=== PATIENT | female | born 1955 | race Caucasian/White ===

== ENCOUNTER 2021-07-31 13:58 | Outpatient (REF) | payer MEDICARE, SELFPAY ==
--- NOTE | ~2021-07-31 | US_ITS ---
EXAMINATION: US THYROID CLINICAL INFORMATION: Nontoxic single thyroid nodule. COMPARISON: None TECHNIQUE: Linear transducer grayscale and color Doppler examination with attention to the region of the thyroid. FINDINGS: SIZE: Measurements of the thyroid lobes and nodules are given in sagittal, anteroposterior and transverse dimensions respectively. Right Thyroid Lobe: 4.7 x 1.1 x 1.6 cm, volume 4.3 mL. Parenchyma: The gland echotexture is homogeneous. Thyroid vascularity is normal. Left Thyroid Lobe: 4.1 x 1.2 x 1.2 cm, volume 3.1 mL. Parenchyma: The gland echotexture is homogeneous. Thyroid vascularity is normal. Isthmus: 0.3 cm in maximum AP dimension. No focal thyroid nodule is seen. NODES: No lymphadenopathy is seen in the tissue surrounding the thyroid gland. US/US thyroid IMPRESSION: Normal thyroid ultrasound.
== END 2021-07-31 13:59 | disposition home or self-care (01) ==
LOC: HO.HMGCX 13:58
PROVIDERS: PCP Internal Medicine; Visit Provider Internal Medicine
DX: E04.1 Nontoxic single thyroid nodule (principal)
CPT/HCPCS: 76536

== ENCOUNTER 2022-01-04 14:07 | Outpatient (REF) | payer OTHER, SELFPAY ==
--- NOTE | ~2022-01-04 | MM_ITS ---
EXAMINATION: MM SCREENING DIGITAL BREAST TOMOSYNTHESIS, BILATERAL CLINICAL INFORMATION: Screening. Asymptomatic. The lifetime risk of breast cancer based on the Tyrer-Cuzick Model is 4%. COMPARISON: Outside mammography: 12/12/2020, 12/09/2019, 12/05/2018 (Arielle Colvin). TECHNIQUE: Digital breast tomosynthesis is performed in both the craniocaudal and mediolateral oblique views along with computer-aided detection (CAD). Synthesized 2D images are generated from the tomosynthesis. FINDINGS: There are scattered areas of fibroglandular density (ACR BI-RADS breast composition Category b). There are no significant masses, abnormal calcifications, or other abnormalities. Parenchymal pattern is similar to prior outside studies. There is no developing density or architectural abnormality. The axilla and skin contours are unremarkable. MM/MM tomosynthesis screening BI IMPRESSION: No mammographic evidence of malignancy. ASSESSMENT: BI-RADS 1: Negative RECOMMENDATION: Routine annual mammography screening. This patient's information was entered into a reminder system with a target due date for their next mammogram.
== END 2022-01-04 14:08 | disposition home or self-care (01) ==
LOC: HO.MAMMO 14:07
PROVIDERS: PCP Internal Medicine; Visit Provider Internal Medicine
DX: Z12.31 Encounter for screening mammogram for malignant neoplasm of breast (principal)
CPT/HCPCS: 77063; 77067

== ENCOUNTER 2022-06-27 15:45 | Outpatient (REF) | payer OTHER, SELFPAY ==
--- NOTE | ~2022-06-27 | US_ITS ---
EXAMINATION: US VENOUS ULTRASOUND WITH DOPPLER LOWER EXTREMITY, LEFT CLINICAL INFORMATION: Pain left knee COMPARISON: None TECHNIQUE: Ultrasound of the deep veins is performed from the hip to the calf with compression sonography and color and pulse Doppler assessment. Spectral analysis with color-flow imaging is performed. FINDINGS: There is normal venous compression and respiratory variation and augmented flow. The visualized common femoral vein, superficial femoral vein, profunda femoral vein, popliteal vein, and the trifurcation region shows no evidence of deep venous thrombosis. There is no significant popliteal fossa cyst. If the patient's symptoms persist, followup ultrasound in 5 days 7 days might be of value to exclude proximal propagation from a non-visualized calf vein. US/US venous duplex LE LT IMPRESSION: No DVT demonstrated in the left lower extremity.
== END 2022-06-27 15:46 | disposition home or self-care (01) ==
LOC: HO.US 15:45
PROVIDERS: Visit Provider Registered Nurse
DX: M25.562 Pain in left knee (principal); G89.29 Other chronic pain
CPT/HCPCS: 93971

== ENCOUNTER 2022-08-08 06:53 | Outpatient (REF) | payer OTHER, SELFPAY ==
--- NOTE | ~2022-08-08 | XR_ITS ---
EXAMINATION: AP bilateral knee standing. Left knee. CLINICAL INDICATION: Pain left knee. COMPARISON: None. TECHNIQUE: AP bilateral knee standing 1 view. Left knee 2 views. FINDINGS: AP bilateral knee: There is mild reduction in the medial and lateral compartments of both knee joints with periarticular spurring in the medial and lateral compartment left knee and medial compartment right knee. No visible acute fracture, dislocation or bony erosive changes seen. LEFT KNEE: There is mild loss of patellofemoral compartment joint space. No visible acute fracture or dislocation seen. There is no subluxation. XR/XR knee standing BI IMPRESSION: 1. Mild degenerative changes medial and lateral compartment both knees with periarticular spurring. 2. There is mild loss of patellofemoral compartment joint space left knee. 3. No visible acute fracture or dislocation seen.
--- NOTE | ~2022-08-08 | XR_ITS ---
EXAMINATION: AP bilateral knee standing. Left knee. CLINICAL INDICATION: Pain left knee. COMPARISON: None. TECHNIQUE: AP bilateral knee standing 1 view. Left knee 2 views. FINDINGS: AP bilateral knee: There is mild reduction in the medial and lateral compartments of both knee joints with periarticular spurring in the medial and lateral compartment left knee and medial compartment right knee. No visible acute fracture, dislocation or bony erosive changes seen. LEFT KNEE: There is mild loss of patellofemoral compartment joint space. No visible acute fracture or dislocation seen. There is no subluxation. XR/XR knee LT 2V IMPRESSION: 1. Mild degenerative changes medial and lateral compartment both knees with periarticular spurring. 2. There is mild loss of patellofemoral compartment joint space left knee. 3. No visible acute fracture or dislocation seen.
== END 2022-08-08 06:54 | disposition home or self-care (01) ==
LOC: HO.HOSX 06:53
PROVIDERS: Visit Provider Physician Assistant
DX: M17.12 Unilateral primary osteoarthritis, left knee (principal); M25.561 Pain in right knee; Z79.899 Other long term (current) drug therapy
CPT/HCPCS: 73560; 73565; 99202

== ENCOUNTER 2022-10-12 10:02 | Outpatient (REF) | payer OTHER, SELFPAY ==
--- NOTE | ~2022-10-12 | MM_ITS ---
EXAMINATION: BONE DENSITOMETRY CLINICAL INDICATION: Age-related osteoporosis without current pathological fracture. COMPARISON: This is the patient's baseline examination. TECHNIQUE: Using a [employer] DXA System (software version: 13.1) manufactured by [email or web address], dual-energy x-ray absorptiometry was performed of the lumbar spine and left hip. The images are of good technical quality. Summary results are attached. FINDINGS: AP SPINE L1-L4: BMD 1.031 g/cm2, Z-score 0.4, T-score -1.2, osteopenia. LEFT FEMUR, NECK: BMD 0.712 g/cm2, Z-score -0.8, T-score -2.3, osteopenia. LEFT FEMUR, TOTAL: BMD 0.898 g/cm2, Z-score 0.5, T-score -0.9, normal. IDENTIFIED RISK FACTORS: History of adult fracture. Secondary osteoporosis (early menopause). Hysterectomy. Bilateral oophorectomy. HISTORY OF FRACTURE: Forearm. MEDICATIONS: Vitamin D. MM/XR DEXA axial skeleton IMPRESSION: 1. DIAGNOSIS: Osteopenia based on the lowest T-score value of -2.3 in the femoral neck applying World Health Organization criteria. 2. 10-YEAR FRACTURE RISK PREDICTION, FRAX: Major osteoporotic fracture (clinical spine, forearm, hip or shoulder) 12.2%. Hip fracture 2.5%. 3. Treatment Recommendations: NOF guidelines recommend consideration for treatment in postmenopausal women and men age 50 and older presenting with the following: -A hip or vertebral (clinical or morphometric) fracture. -T-score less than or equal to -2.5 at the femoral neck or spine after appropriate evaluation to exclude secondary causes. -Low bone mass at the hip or spine and a 10-year fracture probability by FRAX of greater than or equal to 3% for hip fracture or greater than or equal to 20% for major osteoporotic fracture based on the [place] adapted WHO algorithm. 4. Other Recommendations: All treatment decisions require clinical judgment and consideration of individual patient factors, including patient preferences, comorbidities, previous drug use, risk factors not captured in the FRAX model (e.g. frailty, falls, vitamin D deficiency, increased bone turnover, interval significant decline in bone density) and possible under or overestimation of fracture risk by FRAX. Additional medical evaluation for secondary cause of low bone mineral density may be appropriate. FUTURE SCAN RECOMMENDATION: People with diagnosed cases of osteoporosis or at high risk for fracture should have regular bone mineral density tests. For patients eligible for Medicare, routine testing is allowed once every 2 years. The testing frequency can be increased to one year for patients who have rapidly progressing disease, those who are receiving or discontinuing medical therapy to restore bone mass, or have additional risk factors.
== END 2022-10-12 10:03 | disposition home or self-care (01) ==
LOC: HO.MAMMO 10:02
PROVIDERS: PCP Registered Nurse; Visit Provider Registered Nurse
DX: M81.0 Age-related osteoporosis without current pathological fracture (principal)
CPT/HCPCS: 77080

== ENCOUNTER 2022-10-16 09:00 | Outpatient (RCR) | payer OTHER, SELFPAY ==
--- NOTE | 2022-09-04 16:13 | MHC.PT.EP ---
[facility] [place] [facility] [place] [facility] [place] Office [address] [phone] F: [phone] F: [phone] F: [phone] F: [phone] Physical Therapy Plan of Care Date of Evaluation: Date of Surgery: NA Diagnosis: PATELLOFEMORAL ARTHRITIS OF L KNEE Assessment: Pt IS 67 YO F REFERRED TO PT FROM [facility]THO ([facility]) WITH PATELLOFEMORAL ARTHRITIS L KNEE. REPORTS HAVING TROUBLE WITH KNEE FOR SEVERAL YEARS. INSIDIOUS ONSET. NO PT. PRESENTS WITH GOOD L KNEE ROM, SWELLING, SLIGHT TTP FAT PAD, PES PLANUS, LIMITED BAL, PAIN. SHOULD BENEFIT FROM PT TO ADDRESS THESE ISSUES Frequency and Duration: The patient will be seen 2X/WK X 4 WKS Short Term Goals: 1. INCREASED AWARENESS KNEE CARE 2. I HEP WITH DC EX PLAN Assisted Goals: 1. DECREASED KNEE PAIN AT LEAST 50% WITH ADLS 2. Pt TO WEAR ORTHOTICS WITH RELIEF IF INDICATED Treatment Plan: Modalities to reduce pain, spasms and effusion. Manual therapy to restore motion and function. Therapeutic exercise to improve strength and flexibility. Neuromuscular re-education for posture and balance. Therapeutic activities to return to functional activities of daily living. Electronically signed by: SERGIO TUTTLE PT Please sign and return to therapist. Thank you for your referral.
--- NOTE | 2022-10-16 12:23 | MHC.PT.DC ---
[facility] [place] Office [place] [facility] [place] [facility] [address] [place] Koe[address] 140 [facility] [phone] F: [phone] F: [phone] F: [phone] F: [phone] Physical Therapy Discharge Report Diagnosis: PATELLOFEMORAL ARTHRITIS OF L KNEE Date of Surgery: NA Date of Evaluation: 09/04/22 Date of Discharge: 10/16/22 Treatments to Date: 8 Cancellations to Date: No Shows to Date: Discharge Status: Achieved Goals Improved Function Independent with HEP Discharge Summary: HAS MET PT GOALS (EXCEPT ARCH SUPPORT WEAR, BUT AWARE) Electronically signed by: SERGIO TUTTLE PT Please sign and return to therapist. Thank you for your referral.
== END 2022-10-16 12:24 | disposition home or self-care (01) ==
LOC: HO.PT 09:00
PROVIDERS: PCP Registered Nurse; Visit Provider Physician Assistant
DX: M17.12 Unilateral primary osteoarthritis, left knee (principal)
CPT/HCPCS: 97110; 97140; 97161; 97530; 97535

== ENCOUNTER 2023-01-03 13:52 | Outpatient (REF) | payer OTHER, SELFPAY ==
[2023-01-03 20:46] LABS: Influenza A PCR NEGATIVE (Negative); Influenza B PCR NEGATIVE (Negative); Resp Syncy Virus RNA Qual PCR NEGATIVE (Negative); SARS COV2 PCR INHOUSE NEGATIVE (Negative)
== END 2023-01-03 13:53 | disposition home or self-care (01) ==
LOC: HO.HHCLNP 13:52
PROVIDERS: Visit Provider Emergency Medicine
DX: Z20.822 Contact with and (suspected) exposure to COVID-19 (principal); R68.89 Other general symptoms and signs
CPT/HCPCS: 0241U

== ENCOUNTER 2023-02-18 13:22 | Outpatient (REF) | payer OTHER, SELFPAY | END 2023-02-18 13:23 | disposition home or self-care (01) | LOC: HO.MAMMO 13:22 | PROVIDERS: PCP Registered Nurse; Visit Provider Registered Nurse | DX: Z12.31 Encounter for screening mammogram for malignant neoplasm of breast (principal) | CPT/HCPCS: 77063; 77067 ==

== ENCOUNTER → 2023-02-18 13:45 | Outpatient (BNV) | payer OTHER, SELFPAY | PROVIDERS: PCP Registered Nurse; Visit Provider Radiology Diagnostic Radiology | DX: Z12.31 Encounter for screening mammogram for malignant neoplasm of breast (principal) | CPT/HCPCS: 77063; 77067 ==

== ENCOUNTER 2023-07-22 08:31 | Outpatient (REF) | payer OTHER, SELFPAY ==
[2023-07-22 13:00] LABS: Alanine Aminotransferase 14 U/L (0-31); Albumin Level 4.1 g/dL (3.5-5.0); Alkaline Phosphatase 87 U/L (39-117); Anion Gap 11 (12-20); Aspartate Amino Transferase 17 U/L (5-31); Bilirubin Total 0.3 mg/dL (0.0-1.0); Blood Urea Nitrogen 16 mg/dL (9-16); Calcium 10.2 mg/dL (8.4-10.2); Carbon Dioxide 27 mmol/L (22-29); Chloride 109 mmol/L (96-108); Cholesterol 252 mg/dL (<200); Estimated Glomerular Filt Rate > 60; Glucose Random 101 mg/dL (60-115); HDL Cholesterol 53 mg/dL (>40); LDL Cholesterol Calculated 176 mg/dL (<100); Phosphorus 2.3 mg/dL (2.7-4.5); Potassium 4.7 mmol/L (3.3-5.1); Sodium 142 mmol/L (135-145); Triglycerides 116 mg/dL (<150)
[2023-07-22 13:19] LABS: TSH reflex Free T4 0.65 uIU/mL (0.32-4.0); Vitamin D 25-OH Total 61.6 ng/mL (>30)
== END 2023-07-22 08:32 | disposition home or self-care (01) ==
LOC: HO.HHCL 08:31
PROVIDERS: Visit Provider Nurse Practitioner Family
DX: Z13.6 Encounter for screening for cardiovascular disorders (principal); E21.0 Primary hyperparathyroidism
CPT/HCPCS: 36415; 80053; 80061; 82306; 83970; 84100; 84443

== ENCOUNTER 2023-08-20 08:12 | Outpatient (REF) | payer OTHER, SELFPAY ==
[2023-08-20 12:55] LABS: Parathyroid Hormone Intact 131.9 pg/mL (8.7-77.1)
[2023-08-20 13:01] LABS: Alanine Aminotransferase 15 U/L (0-31); Albumin Level 4.1 g/dL (3.5-5.0); Alkaline Phosphatase 93 U/L (39-117); Anion Gap 12 (12-20); Aspartate Amino Transferase 17 U/L (5-31); Bilirubin Total 0.3 mg/dL (0.0-1.0); Blood Urea Nitrogen 13 mg/dL (9-16); Calcium 10.3 mg/dL (8.4-10.2); Carbon Dioxide 27 mmol/L (22-29); Chloride 106 mmol/L (96-108); Estimated Glomerular Filt Rate > 60; Glucose Random 98 mg/dL (60-115); Magnesium 2.4 mg/dL (1.6-2.6); Phosphorus 2.8 mg/dL (2.7-4.5); Potassium 4.5 mmol/L (3.3-5.1); Sodium 140 mmol/L (135-145); Total Protein 6.9 g/dL (6.5-8.0)
[2023-08-20 13:04] LABS: Vitamin D 25-OH Total 100.8 ng/mL (>30)
== END 2023-08-20 08:13 | disposition home or self-care (01) ==
LOC: HO.HHCL 08:12
PROVIDERS: Visit Provider Nurse Practitioner Family
DX: R79.89 Other specified abnormal findings of blood chemistry (principal); E83.39 Other disorders of phosphorus metabolism
CPT/HCPCS: 36415; 80053; 82306; 83735; 83970; 84100

== ENCOUNTER 2024-02-24 12:19 | Outpatient (REF) | payer OTHER, SELFPAY ==
--- NOTE | ~2024-02-24 | MM_ITS ---
EXAMINATION: MM SCREENING DIGITAL BREAST TOMOSYNTHESIS, BILATERAL CLINICAL INFORMATION: Screening. Asymptomatic. COMPARISON: Mammography: Comparison is made with available priors TECHNIQUE: Digital breast mammography with tomosynthesis is performed in both the craniocaudal and mediolateral oblique views along with computer-aided detection (CAD). FINDINGS: There are scattered areas of fibroglandular density (ACR BI-RADS breast composition Category b). There are no significant masses, abnormal calcifications, or other abnormalities. MM/MM tomosynthesis screening BI IMPRESSION: No mammographic evidence of malignancy. ASSESSMENT: BI-RADS BI-RADS 1 - Negative RECOMMENDATION: Routine annual mammography screening. 1 year F/U This examination should not preclude the clinical evaluation of a suspicious palpable abnormality. This patient's information was entered into a reminder system with a target due date for their next mammogram. Electronically signed by: Jane Houston DO 03/05/2024 06:35 PM EDT
== END 2024-02-24 12:20 | disposition home or self-care (01) ==
LOC: HO.MAMMO 12:19
PROVIDERS: PCP Nurse Practitioner Family; Visit Provider Registered Nurse
DX: Z12.31 Encounter for screening mammogram for malignant neoplasm of breast (principal)
CPT/HCPCS: 77063; 77067

== ENCOUNTER → 2024-02-24 13:00 | Outpatient (BNV) | payer OTHER, SELFPAY | PROVIDERS: PCP Nurse Practitioner Family; Visit Provider Internal Medicine | DX: Z12.31 Encounter for screening mammogram for malignant neoplasm of breast (principal) | CPT/HCPCS: 77063; 77067 ==

== ENCOUNTER 2025-03-01 12:05 | Outpatient (REF) | payer OTHER, SELFPAY ==
--- OUTSIDE RECORDS SUMMARY | 2025-03-01 14:33 | XMS_ITS | Clinical Summary ---
Author Organization [facility] it Address [address] [place] [address] Care Team Providers Care Desk Clerks Supervisor Name Role Phone Bri Costa MD Primary Care Provider Allergies No known active allergies Medications ibuprofen (ADVIL,MOTRIN) 600 mg tablet Take 1 Tab by mouth every 6 hours as needed (as needed for headaches). Active LORazepam (ATIVAN) 0.5 mg tablet Take 1 tablet by mouth daily as needed for Anxiety. Active sertraline (ZOLOFT) 50 mg tablet Take 50 mg by mouth daily. Active Active Problems Problem Noted Date Diagnosed Date Prediabetes 05/29/2024 COVID-19 virus infection 01/12/2021 Overview (05/29/2024): 01/14 covid positive Osteoporosis 11/11/2019 Carcinoma of endometrium ([facility]/HCC V24, [facility] V 28) 12/22/2018 Overview (05/29/2024): Hysterectomy 08/14/2018 Endometrial cancer (CMS/HCC V24, CMS/HCC V28) Overview (05/29/2024): F/u software configuration specialist onc [facility], recommend hysterectomy Last Assessment & Plan: Counseled pt and family re: biopsy and ultrasound findings. I reviewed usual process and referral to [facility] for likely surgery alone. She will await this visit. All questions and concerns addressed. Obstructive sleep apnea 06/07/2018 Overview (05/29/2024): [facility] Home Polysomnogram: Date 06/04/2018; AHI 12, Unclassified apneas 0; Obstructive apneas 17; Central apneas 0; Mixed apneas 0; hypopneas 65; average oxygen saturation 93% (lowest 79% without saturations <88% for 5% or more of study) - Obstructive Sleep Apnea - mild; mostly hypopneas with obstructive apneas; without sleep related hypoventilation by 2019 home polysomnogram. Osteoarthritis of both hands 08/22/2016 Vitamin D deficiency 04/08/2014 Neck pain 12/08/2012 Osteopenia 12/08/2012 Hyperparathyroidism ([facility] V24) 12/11/2010 Hyperlipidemia with target LDL less than 130 Overview (05/29/2024): IMO update Depression 07/10/2010 Overview (05/29/2024): Patient follow a [facility] and has her prescriptions give there Anxiety 07/10/2010 Immunizations Immunization Administration Dates Next Due Influenza Quadravalent, MDCK , 0.5ml, with preservative (Flucelvax) 6mo and older 03/21/2017 Influenza trivalent, with preservative (Fluzone; Afluria) 6mo and older 02/10/2015,04/08/2014,05/01/2013,2010 Tdap Tetanus diptheria acell ular pertussis (Boostrix; Adacel) 7yo and older 07/10/2010 Zoster Live 01/11/2017 Surgical History Surgery Date Site/Laterality Comments TUBAL LIGATION PROCEDURE: HISTORICAL TUBAL LIGATION CHOLECYSTECTOMY 1998 PROCEDURE: [place] CHOLECYSTECTOM[place] COLONOSCOPY 01/02/2010 PROCEDURE: HISTORICAL COLONOSCOPY; COMMENT: Dr Rodríguez ([facility]) - solitary, cecal tubular adenomatous polyp. Otherwise unremarkable colonoscopy to the cecum. Repeat colonoscopy in 5 years is recommended. EYE SURGERY 2012 PROCEDURE: [place] TRABECULOPLASTY BY LASER SURGERY; COMMENT: for glaucoma COLONOSCOPY 2014 PROCEDURE: HISTORICAL COLONOSCOPY; COMMENT: 4 mm hepatic flexure polyp, unable to biopsy. COLONOSCOPY 02/18/2020 PROCEDURE: HISTORICAL COLONOSCOPY; COMMENT: 9 mm distal transverse colon polyp: Tubular adenoma. Medical History Medical History Date Comments Anxiety state, unspecified DX:An xiety state, unspecified Generalized osteoarthrosis, unspecified site DX:Generalized osteoarthrosi s, unspecified site Osteoarthritis of hand, right 08/22/2016 DX :Osteoarthritis of hand, right Prediabetes DX:Prediabetes COVID-19 virus infection 01/12/2021 DX:COVI D-19 virus infection; COMMENT: 01/14 covid positive Family History Medical History Relation Name Comments Other: , unknown etiology Father No Known Problems Maternal Grandfather No Known Problems Maternal Grandmother Other: , question cause Mother No Known Problems Paternal Grandfather No Known Problems Paternal Grandmother Breast cancer Neg Hx Colon cancer Neg Hx Ovarian cancer Neg Hx Uterine cancer Neg Hx Relation Name Status Comments Father Alive Maternal Grandfather Maternal Grandmother Mother Alive Paternal Grandfather Paternal Grandmother Social History Tobacco Use Types Packs/Day Years Used Date Smoking Tobacco: Former Cigarettes 0.5 2 0 05/27/1974 - 05/27/1976 Smokeless Tobacco: Never Alcohol Use Standard Drinks/Week Comments No 0 (1 standard drink = 0.6 oz pur e alcohol) Comments Unknown Sex and Gender Information Value Date Recorded Sex Assigned at Not on file Legal Sex Female 5:02 AM EST Gender Identity Not on file Sexual Orientation Not on file Obstetrics History Plan of Treatment Health Maintenance Due Date Last Done Comments COVID-19 Vaccine (#1) 1960 Pneumococcal Vaccine: 50+ Years (1 of 1 - PCV) 2005 Zoster Vaccines (1 of 2) 03/08/2017 01/11/2017 DTaP,Tdap,and Td Vaccines (2 - Td or Tdap) 07/10/2020 07/10/2010 Falls Risk Assessment 04/29/2022 Social Influencers of Health Screening 04/29/2022 Breast Cancer Screening 12/12/2022 12/13/19 21, 12/09/2019, 12/05/2018, Additional history exists Depression Screening 05/27/2024 Cholesterol Screening (Lipid Panel) 11/15/2024 11/16/2019 Influenza Vaccine (#1) 2025 7, 02/10/2015, 04/08/2014, Additional history exists Colorectal Cancer Screening: Colonoscopy 02/17/2025 02/18/2020 Osteoporosis Screening (Bone Density Screening) 07/07/2029 07/07/2019, 03/15/2017 RSV Immunization Adult Patients (1 - 1-dose 75+ series) 2030 Hepatitis C Screening Completed 12/11/2012 HIB Vaccines Aged Out No longer eligi ble based on patient's age to complete this topic HPV Vaccines Aged Out No longer eligi ble based on patient's age to complete this topic Hepatitis A Vaccines Aged Out No long er eligible based on patient's age to complete this topic Hepatitis B Vaccines Aged Out No long er eligible based on patient's age to complete this topic IPV Vaccines Aged Out No longer eligi ble based on patient's age to complete this topic MMR Vaccines Aged Out No longer eligi ble based on patient's age to complete this topic Meningococcal ACWY Vaccine Aged Out N o longer eligible based on patient's age to complete this topic Meningococcal B Vaccine Aged Out No l onger eligible based on patient's age to complete this topic RSV Immunization Patients Under 20 months Aged Out No longer eligible based on patient's age to complete this topic Varicella Vaccines Aged Out No longer eligible based on patient's age to complete this topic Procedures Procedure Name Priority Date/Time Associated Diagnosis Comments SCREENING MAMMOGRAPHY BI 2-VIEW BREAST INC CAD Routine 12/12/2020 8:15 AM EDT Encounter for screening mammogram for malignant neoplasm of breast COLONOSCOPY Routine 02/18/2020 LIPID PANEL Routine 11/16/2019 DXA BONE DENSITY STUDY 1+ SITS AXIAL SKEL Routine 07/07/2019 1:47 PM EST Other specified disorders of bone density and structure, multiple sites HEPATITIS C SCREENING Routine 12/11/2012 from Last 3 Months or Most Recently Relevant to Health Maintenance Results * SCREENING MAMMOGRAPHY BI 2-VIEW BREAST INC CAD (12/12/2020 8:15 AM EDT) Anatomical Region Laterality Modality Radiographic Paz ging 12/09/2019 9:52 AM EDT Narrative 12/12/2020 5:06 PM EDT This is a summary report. The complete report is available in the patient's medical record. If you cannot access the medical record, please contact the sending organization for a detailed fax or copy. Full field digital screening 3D and 2D mammography, reviewed with CAD and compared to previous mammograms dating back to 11/24/2016 with most recent of 12/09/2019. The breasts are composed of fatty and fibroglandular tissue. No suspicious mass, architectural distortion or suspicious calcifications are identified. IMPRESSION: : No mammographic evidence of malignancy. BIRADS 1-Negative; N. 5 year breast cancer risk assessment 0.8 % Lifetime breast cancer risk assessment 3.1 % Breast cancer risk category Low (<15%) Procedure Note Susy Urias MD - 05/15/2022 This is a summary report. The complete report is available in thepatient's medical record. If you cannot access the medical record, pleasecontact the sending organization for a detailed fax or copy. Full field digital screening 3D and 2D mammography, reviewed with CAD andcompared to previous mammograms dating back to 11/24/2016 with most recentof 12/09/2019. The breasts are composed of fatty and fibroglandulartissue. No suspicious mass, architectural distortion or suspiciouscalcifications are identified. IMPRESSION: : No mammographic evidence of malignancy. BIRADS 1-Negative; N. 5 year breast cancer risk assessment 0.8 % Lifetime breast cancer risk assessment 3.1 % Breast cancer risk category Low (<15%) Ana Govea MD IMG XR PROCEDURES Final Res ult * Colonoscopy (02/18/2020) Pathologist [facility] Colonoscopy no interpretation abstracted Anatomical Region Laterality Modality Other Historical Provider HEALTH MAINTENANCE Final Result * (ABNORMAL) Lipid panel (11/16/2019) LDL/HDL Ratio 6(A) 0 - 4 Triglycerides 182(A) 0 - 150 mg/dL Cholesterol 234(A) 0 - 200 mg/dL HDL 40 >=40 mg/dL LDL Cholesterol 158(A) 0 - 100 mg/dL Blood Venous blood specimen / Unknown Historical Provider LAB BLOOD ORDERABLES Yareli l Result * DXA BONE DENSITY STUDY 1+ SITS AXIAL SKEL (07/07/2019 1:47 PM EST) Anatomical Region Laterality Modality Bone Densitometr y 12/22/2018 11:5 1 AM EDT Narrative 07/07/2019 5:47 PM EST BONE DENSITY SCAN (DEXA): FINDINGS: Lumbar Spine T-score is -2.1. (SD relative to 20-29 y/o adult) Z-score is -0.4. (SD relative to age matched peers) This is considered osteopenia by WHO criteria. Left Hip T-score is -2.6. Z-score is -1.2. This is considered osteoporosis by WHO criteria. Comparison exam(s): As recent as 03/15/2017 and as far back as 03/02/2011. -10.8% loss of lumbar spine bone mineral density compared with 2016 and 9.6% loss compared with 2010, both of which are statistically significant at the 95% confidence level. -4.2% increase in left hip bone mineral density compared with 2016 and 7.4% loss compared with 2010, both of which are statistically significant at the 95% confidence level. IMPRESSION: IMPRESSION: Osteoporosis by WHO criteria. FRAX scores not able to be calculated. The [facility] Department of Internal Medicine recommends using National Osteoporosis Foundation (NOF) guidelines in treatment decisions related to osteoporosis. NOF guidelines suggest considering treatment for postmenopausal women and men aged 50 or older presenting with the following: History of hip or vertebral fracture. T-score = -2.5 (DXA) at the femoral neck, total hip, or spine, after appropriate evaluation to exclude secondary causes. Low bone mass (T-score between -1.0 and -2.5 at the femoral neck or spine) AND a 10-year probability of a hip fracture = 3% OR a 10-year probability of a major osteoporosis-related fracture = 20% based on the [place]-adapted WHO algorithm Please note that all treatment decisions require clinical judgment and consideration of individual patient factors, including patient preferences, co-morbidities, previous drug use, risk factors not captured in the FRAX model (e.g., frailty, falls, vitamin D deficiency, increased bone turnover, interval significant decline in bone density) and possible under- or over-estimation of fracture risk by FRAX. Optional alternative screening schedule based on yael Perez., [facility] June 14, 2011 for patients with osteopenia (based on hip BMD T-score) is as follows: * advanced osteopenia (T scores -2.00 to -2.49), BMD testing every year * moderate osteopenia (T scores -1.50 to -1.99), BMD testing every 5 years mild osteopenia or normal BMD (T scores -1.50 and higher), BMD testing every 15 years Procedure Note Sepideh Alvarez MD - 05/15/2022 BONE DENSITY SCAN (DEXA): FINDINGS: Lumbar Spine T-score is -2.1. (SD relative to 20-29 y/o adult) Z-score is -0.4. (SD relative to age matched peers) This is considered osteopenia by WHO criteria. Left Hip T-score is -2.6. Z-score is -1.2. This is considered osteoporosis by WHO criteria. Comparison exam(s): As recent as 03/15/2017 and as far back as1. -10.8% loss of lumbar spine bone mineral density compared with 2016 and9.6% loss compared with 2010, both of which are statistically significant at the 95% confidencelevel. -4.2% increase in left hip bone mineral density compared with 2016 and7.4% loss compared with 2010, both of which are statistically significant at the 95% confidencelevel. IMPRESSION: IMPRESSION: Osteoporosis by WHO criteria. FRAX scores not able to be calculated. The [facility] Department of Internal Medicine recommendsusing National Osteoporosis Foundation (NOF) guidelines in treatment decisions related toosteoporosis. NOF guidelines suggest considering treatment for postmenopausal women and menaged 50 or older presenting with the following: History of hip or vertebral fracture. T-score = -2.5 (DXA) at the femoral neck, total hip, or spine, afterappropriate evaluation to exclude secondary causes. Low bone mass (T-score between -1.0 and -2.5 at the femoral neck or spine)AND a 10-year probability of a hip fracture = 3% OR a 10-year probability of a majorosteoporosis-related fracture = 20% based on the [place]-adapted WHO algorithm Please note that all treatment decisions require clinical judgment andconsideration of individual patient factors, including patient preferences, co- morbidities,previous drug use, risk factors not captured in the FRAX model (e.g., frailty, falls, vitaminD deficiency, increased bone turnover, interval significant decline in bone density) andpossible under- or over-estimation of fracture risk by FRAX. Optional alternative screening schedule based on gela Perez al., NEJMJanuary 2011 for patients with osteopenia (based on hip BMD T-score) is as follows: * advanced osteopenia (T scores -2.00 to -2.49), BMD testing every year * moderate osteopenia (T scores -1.50 to -1.99), BMD testing every 5years mild osteopenia or normal BMD (T scores -1.50 and higher), BMD testingevery 15 years Yuri Villaseñor MD IM DXA PROCEDURES Final Resul t * Hepatitis C Screening (12/11/2012) [facility] Hepatitis C Screening abstracted Historical Provider HEALTH MAINTENANCE Final Result from Last 3 Months or Most Recently Relevant to Health Maintenance Advance Directives Documents on File Type Date Recorded Patient Instructor Hairspring Expl anation Health Care Decision (hx) 02/18/2020 AD MARADIAGA DIRECTIVE Health Care Decision (hx) 02/18/2020 AD MARADIAGA DIRECTIVE Care Teams Desk Clerks Supervisor Relationship Specialty Start Date End Date Bri Costa MD [address] [place] [address] PCP - General Internal Medicine 12/10/19
--- OUTSIDE RECORDS SUMMARY | 2025-03-01 14:33 | XMS_ITS | Clinical Summary ---
Author Organization [facility] Address [address] [place] [address] Care Team Providers Care Patent Solicitor Name Role Phone Unavailable Primary Care Provider Unavailabl e Source Comments PLEASE NOTE, if this patient is a minor, it may be UNLAWFUL to discuss sensitive information that is contained in these records (such as FAMILY PLANNING, MENTAL HEALTH or SUBSTANCE ABUSE) with the minor patient's parent or other person without the patient's specific authorization.[facility] Immunizations Immunization Administration Dates Next Due Moderna COVID-19 Vaccine, re d cap blue label, 12+ Primary Series 09/19/2020,08/22/2020 Social History Tobacco Use Types Packs/Day Years Used Date Smoking Tobacco: Never Assessed Social Connections Answer Date Recorded Social Connections and Isolation 0 08/22/2020 Financial Resource Strain Answer Date R ecorded Financial Resource Strain 0 2020 Stress Answer Date Recorded Stress 0 08/22/2020 Physical Activity Answer Date Recorded Physical Activity 0 08/22/2020 Food Insecurity Answer Date Recorded Food 0 08/22/2020 Transportation Needs Answer Date Record ed Transportation 0 08/22/2020 Housing Stability Answer Date Recorded Housing 0 08/22/2020 Safety and Environment Answer Date Ralph rded Safety 0 08/22/2020 Utilities Answer Date Recorded Utilities 0 08/22/2020 Employment Answer Date Recorded Employment 0 08/22/2020 Comments Unknown Sex and Gender Information Value Date Recorded Sex Assigned at Not on file Legal Sex Female 7:42 AM PDT Gender Identity Not on file Sexual Orientation Not on file Plan of Treatment Health Maintenance Due Date Last Done Comments Diabetes Screening 1955 Hepatitis C Screening 1955 Lipid Screening 1955 Tobacco Screening 1955 Hypertension Screening (#1) 1973 Medicare Annual Wellness Visit 1973 Breast Cancer Screening (Mammogram) 1995 CT Colonography 2000 Colonoscopy 2000 Colorectal Cancer Screening 2000 FIT/gFOBT 2000 Fecal DNA 2000 Flexible Sigmoidoscopy 2000 Imm-Pneumococcal 50+ (1 of 1 - PCV) 2005 Imm-Zoster, Recombinant (2 of 3) 03/08/2017 01/12/20 17 Bone Density Screening 2020 Falls Prevention 2020 Imm-DTaP/Tdap/Td (2 - Td or Tdap) 07/10/2020 011 Alcohol and Drug Screen 05/27/2024 Depression Annual Screen 05/27/2024 [id number] ( - season) 2025 021, 08/22/2020 Imm-Influenza (#1) 2025 03/23/2016, 0 02/10/2015, 04/08/2014, Additional history exists Insurance [facility]
--- OUTSIDE RECORDS SUMMARY | 2025-03-01 14:33 | XMS_ITS | Clinical Summary ---
Author Organization [employer] Address [address] [place] [address] 7[address] [place] [address] Care Team Providers Care Head Of It Name Role Phone Sadie Alonso RAMÓN Primary Care Provider [phone] Allergies No known active allergies Medications sertraline (Zoloft) 50 MG tablet Take 1 tablet by mouth at bed time. Active LORazepam (Ativan) 0.5 MG tablet Take 1 tablet by mouth if needed each day. 9 Active zoster vaccine-recombi nant adjuvanted (Shingrix) 50 MCG/0.5ML vaccine Inject 0.5 mL into the shoulder, thigh, or buttocks. 2 Active Diclofenac Sodium 1 % gelIndications: Chronic pain of left knee Apply 2 g topically if needed in the morning, at noon, in the evening, and at bedtime (Pain in knee). 100 g 11 3 Active Active Problems Problem Noted Date Diagnosed Date Hypophosphatemia 08/19/2023 Assessment & Plan (08/19/2023 5:46 PM EDT): Will trend today, referral to endocrine Denies symptoms, reviewed phosphorous rich foods Elevated parathyroid hormone 08/19/2023 Hypercalcemia 12/05/2022 Assessment & Plan (07/01/2023 12:52 PM EST): Trend labs, denies calcium supplementation Assessment & Plan (12/05/2022 10:07 AM EDT): Component Ref Range & Units 3 wk ago (11/09/22) 1 mo ago (10/10/22) 1 mo ago (10/10/22) 2 mo ago (09/27/22) Calcium 8.6 - 10.4 mg/dL 11.2 High 10.7 High 11.1 High 10.6 High Vitamin D levels wnl Component Ref Range & Units 2 mo ago Vitamin D,25-OH, Total, IA 30 - 100 ng/mL 62 recommended to stop taking vitamin D. F/up up in 3 months to check vitamin d and calcium. Colorectal polyp detected on colonoscopy 023 Assessment & Plan (12/05/2022 10:05 AM EDT): Patient brought in colonoscopy results as requested. She had a colonoscopy Sep 2019. Findings: One 9 mm polyp in the distal transverse colon, removed, resected and retrieved The examination was otherwise normal Recommendation was to repeat the colonoscopy in 5 to 10 years depending on the pathology report. I was unable to find the pathology report. I will place her care gap at 5 years for colonoscopy. Lower abdominal pain 10/05/2022 Assessment & Plan (12/05/2022 12:06 PM EDT): I ordered a CT scan on 10/05/22 it was denied by [facility]. She does not report any further abdominal pain today. Assessment & Plan (10/05/2022 4:20 PM EDT): Due to this patients medical history of endometrial cancer, I find it prudent to do a workup on her abdominal pain. Vaginal bleeding 10/05/2022 Assessment & Plan (10/05/2022 4:22 PM EDT): Appointment made for patient with [facility]. Constipation 10/04/2022 History of appendectomy 10/04/2022 Influenza-like symptoms 10/04/2022 Mass of breast 10/04/2022 Prediabetes 10/03/2022 Routine adult health maintenance 08/24/2022 Assessment & Plan (10/05/2022 1:00 PM EDT): Asked patient if she had had a colonoscopy. She stated she has and that she doesn't need one. I informed her that I could not find records of her last colonoscopy and I need them. She reported to me that she had records of it and would bring them into her next visit. STI: not using any protection, she requests sti testing Smoking status: Denies, Lipids: Mammo: 01/04/22 No mammographic evidence of malignancy. Repeat 12/2023? She had one in 2020 as well (why?) there is not recommendation on either mammogram. Colonoscopy: I cannot find documentation of her last colonoscopy. DEXA: 65 women, 70 men Vacc.: Eye exam: last April, [place] [facility] Dental home: [facility] F/up 2 months care gaps + documentation. Assessment & Plan (08/24/2022 9:32 AM EDT): Previous blood work: I explained that her RH factor, MANUELA and CRP came back negative. However, the rest of her blood work is a year old and she needs and annual exam. I ordered some repeat blood work for her upcoming annual exam. Chronic pain of left knee 08/23/2022 Assessment & Plan (12/05/2022 12:07 PM EDT): She states that the diclofenac cream helps and requested that I refill it. Assessment & Plan (08/24/2022 9:29 AM EDT): Patients knee pain is managed with the diclofenac gel. She starts PT next week. I will see her at her annual exam in 2 months and we will discuss how PT is coming along and if we need to take further steps to manage her pain. COVID-19 virus infection 01/12/2021 Overview (10/04/2022): 01/14 covid positive Osteoporosis 11/11/2019 Assessment & Plan (10/03/2022 1:28 PM EDT): Last Dxa 07/07/2019 Advised patient that she must be off calcium supplements 48 hrs prior to the test and medication for osteoporosis the day of the test. Endometrial cancer 06/27/2018 Overview (10/04/2022): Hysterectomy 08/14/2018 F/u collection support specialist onc [facility], recommend hysterectomy Last Assessment & Plan: Counseled pt and family re: biopsy and ultrasound findings. I reviewed usual process and referral to [facility] for likely surgery alone. She will await this visit. All questions and concerns addressed. Assessment & Plan (10/05/2022 1:01 PM EDT): Per 01/15 note: Uterine cancer: s/p MARY LOU+SBO and is followed every 6 months. She had radiation but no chemotherapy. Had abnormal bleeding after menopause. Last seen 11/15 by gynecology and was told everything was fine Obstructive sleep apnea 06/07/2018 Overview (10/04/2022): [facility] Home Polysomnogram: Date 06/04/2018; AHI 12, Unclassified apneas 0; Obstructive apneas 17; Central apneas 0; Mixed apneas 0; hypopneas 65; average oxygen saturation 93% (lowest 79% without saturations <88% for 5% or more of study) - Obstructive Sleep Apnea - mild; mostly hypopneas with obstructive apneas; without sleep related hypoventilation by 2019 home polysomnogram. Osteoarthritis of both hands 08/22/2016 Vitamin D deficiency 04/08/2014 Assessment & Plan (10/05/2022 1:02 PM EDT): Component Ref Range & Units 6 d ago Vitamin D,25-OH, Total, IA 30 - 100 ng/mL 62 Continue current therapy Neck pain 12/08/2012 Osteopenia 12/08/2012 Assessment & Plan (08/19/2023 5:47 PM EDT): Dexa completed 10/16 No falls Hyperparathyroidism, primary 12/11/2010 Assessment & Plan (08/19/2023 5:46 PM EDT): Referral to endocrine, aware if symptoms to report Hyperlipidemia with target LDL less than 130 Overview (10/04/2022): IMO update Assessment & Plan (07/01/2023 12:52 PM EST): Trend labs , low cad risk overall Anxiety 07/10/2010 Depression 07/10/2010 Overview (10/04/2022): Patient follow a [facility] and has her prescriptions give there Encounters Date Type Department Care Team Description 12/11/2024 Telephone [facility] [address] [place] [address] [phone] Sadie Alonso, RAMÓN Nurse Triage from Last 3 Months Immunizations Immunization Administration Dates Next Due INFLUENZA INJECTABLE QUADRIV ALANT CCIIV4 MDCK Multi-dose vial 03/21/2017 Influenza High-dose Quadriva lent Preservative Free 03/28/2022 Influenza Whole 04/23/2008,03/20/2007 Influenza, IIV3, injectable 03/23/2016,0 02/10/2015,04/08/2014,2012,02/26/2011 Pneumococcal Conjugate PCV 20 12/26/2021 TD (adult), 2 Lf tetanus tox oid, preservative free, adsorbed 12/26/2021 Tdap 07/10/2010 Zoster, Recombinant 11/17/2022,06/06/2022 Zoster, live 01/11/2017 Family History Medical History Relation Name Comments Stomach cancer Sister Relation Name Status Comments Sister Social History Tobacco Use Types Packs/Day Years Used Date Smoking Tobacco: Never Passive Smoke Exposure: Never Smokeless Tobacco: Never Tobacco Cessation:Counseling Given: Not Answered Alcohol Use Standard Drinks/Week Comments Never 0 (1 standard drink = 0.6 oz pur e alcohol) Depression Answer Date Recorded Patient Health Questionnaire-9 Score 0 12/05/2022 Housing Stability Answer Date Recorded What is your housing situation today? I have tashi varela 03/11/[address] you li ve. Do you have problems with any of the following? None of the above 03/11/2023 Food Insecurity Answer Date Recorded Within the past 12 months, y ou worried that your food would run out before you got money to buy more: Never True 03/11/2023 Within the past 12 months,th e food you bought just didn't last and you didn't have enough money to get more: Never True Transportation Answer Date Recorded In the past 12 months, has l ack of transportation kept you from medical appts, meetings, work or from getting things needed for daily living? No 03/11/2023 Utilities Answer Date Recorded In the past 12 months, has t he [employer], gas, oil or water company threatened to shut off services in your home? No 03/11/2023 Depression Answer Date Recorded Patient Health Questionnaire-2 Score 0 12/05/2022 Comments No Sex and Gender Information Value Date Recorded Sex Assigned at Female 03/26/2022 10:32 AM EDT Legal Sex Female 10:32 AM EDT Gender Identity Female 03/26/2022 10:32 AM EDT Sexual Orientation Straight 03/26/2022 10 :32 AM EDT Last Filed Vital Signs Vital Sign Reading Time Taken Comments Blood Pressure 107/60 08/19/2023 10:34 AM EDT Pulse 56 08/19/2023 10:34 AM EDT Temperature 36.2 C (97.1 F) 08/19/2023 10:34 AM EDT Respiratory Rate 12 08/19/2023 10:34 AM EDT Oxygen Saturation 98% 08/19/2023 10:34 AM EDT Inhaled Oxygen Concentration - - Weight 63.3 kg (139 lb 9.6 oz) 08/19/2023 10:34 AM EDT Height 154.9 cm (5' 1 ) 08/19/2023 10:34 AM EDT Body Mass Index 26.38 08/19/2023 10:34 AM EDT Plan of Treatment Health Maintenance Due Date Last Done Comments CT Colonography 1955 FIT DNA/Cologuard 1955 FIT 1955 FOBT 1955 Sigmoidoscopy 1955 Alcohol/Substance Use Screening 1967 Diabetes: Hemoglobin A1C 09/28/2023 09/27/2022, 03/0 05/2021 Depression Screening 12/06/2023 12/05/2022, 12/06/19 SDOH Screening 06/24/2024 06/24/2023 Tobacco Screening 08/18/2024 08/19/2023 COVID-19 Vaccine ( season) 2025 12/26/2021, 06/18/2021, 09/19/2020, Additional history exists Influenza Vaccine (#1) 2025 , 03/21/2017, 03/23/2016, Additional history exists Colonoscopy 02/17/2025 Colorectal Cancer Screening 02/17/2025 Mammogram 02/23/2026 02/24/2024, 01/26, 01/04/2022 RSV Patients and Patients Aged 60 years or older (1 - 1-dose 75+ series) 2030 DTaP/Tdap/Td Vaccines (3 - Td or Tdap) 12/27/2031 12/26/2021, 07/10/2010 Pneumococcal Vaccine: 50+ Years Completed 12/26/2021 Hepatitis C Screening Completed 10/10/2022, 022 Zoster Vaccines Completed 11/17/2022, 05/27, 01/11/2017 HIB Vaccines Aged Out No longer eligi [...] patient's age to complete this topic Meningococcal Vaccine Aged Out No rajat jaime eligible based on patient's age to complete this topic RSV under 20 months Aged Out No longe r eligible based on patient's age to complete this topic Rotavirus Vaccines Aged Out No longer eligible based on patient's age to complete this topic Procedures Procedure Name Priority Date/Time Associated Diagnosis Comments BI MAMMOGRAM SCREENING TOMOSYNTHESIS BILATERAL Routine 02/24/2024 12:35 PM EDT HEPATITIS C AB W/REFL TO HCV RNA, QN, PCR Routine 10/10/2022 9:24 AM EDT Routine adult health maintenance HEMOGLOBIN A1C Routine 09/27/2022 7:57 AM EDT Routine adult health maintenance from Last 3 Months or Most Recently Relevant to Health Maintenance Results * BI Mammogram Screening Tomosynthesis Bilateral (02/24/2024 12:35 PM EDT) Anatomical Region Laterality Modality Breast Bilateral Mammography 02/24/2024 12:3 5 PM EDT Narrative 03/05/2024 6:39 PM EDT [facility] [address] [place] [address] Mammography Report Signed Patient: Hilary Carolina MR#: [id number] : 1955 Acct:[id number] Age/Sex: 68 / F ADM Date: 02/24/24 Loc: HO.MAMMO Attending Dr: Romulo Rasmussen NP Ordering Physician: Romulo Rasmussen NP Results: 1Negativ e Date of Service: 02/24/24 Follow Up: 1 Year From Orig formerly [facility] Mammogram Procedure(s): MM tomosynthesis screening BI Accession Number(s): [id number] cc: Sadie Alonso BUTTON SEWER HAND; Romulo Rasmussen NP EXAMINATION: MM SCREENING DIGITAL BREAST TOMOSYNTHESIS, BILATERAL CLINICAL INFORMATION: Screening. Asymptomatic. COMPARISON: Mammography: Comparison is made with available priors TECHNIQUE: Digital breast mammography with tomosynthesis is performed in both the craniocaudal and mediolateral oblique views along with computer-aided detection (CAD). FINDINGS: There are scattered areas of fibroglandular density (ACR BI-RADS breast composition Category b). There are no significant masses, abnormal calcifications, or other abnormalities. MM/MM tomosynthesis screening BI IMPRESSION: No mammographic evidence of malignancy. ASSESSMENT: BI-RADS BI-RADS 1 - Negative RECOMMENDATION: Routine annual mammography screening. 1 year F/U This examination should not preclude the clinical evaluation of a suspicious palpable abnormality. This patient's information was entered into a reminder system with a target due date for their next mammogram. Electronically signed by: Jane Houston DO 03/05/2024 06:35 PM EDT RP Dictated By: Jane Houston DO Signed By: <Electronically signed by Jane Houston DO in OV> 03/05/24 1835 DD/ 1235 TD/TT: 02/24/24 1250 Warehouse Shipping Associate: Procedure Note Donotuseinterpreter, Image - [facility] [address] [place] [address] Mammography Report Signed Patient: Robert Carolina#: [id number] : 5Acct:[id number] Age/Sex: 68 / FADM Date: 02/24/24 Loc: HO.MAMMO Attending Dr: Romulo Rasmussen BUTTON SEWER HAND Ordering Physician: Romulo Rasmussen NPResults: 1Negativ e Date of Service: 02/24/24Follow Up: 1 Year From Orig inal Mammogram Procedure(s): MM tomosynthesis screening BI Accession Number(s): [id number] cc: Sadie Alonso BUTTON SEWER HAND; Romulo Rasmussen NP EXAMINATION: MM SCREENING DIGITAL BREAST TOMOSYNTHESIS, BILATERAL CLINICAL INFORMATION: Screening. Asymptomatic. COMPARISON: Mammography: Comparison is made with available priors TECHNIQUE: Digital breast mammography with tomosynthesis is performed in both the craniocaudal and mediolateral oblique views along with computer-aided detection (CAD). FINDINGS: There are scattered areas of fibroglandular density (ACR BI-RADS breast composition Category b). There are no significant masses, abnormal calcifications, or other abnormalities. MM/MM tomosynthesis screening BI IMPRESSION: No mammographic evidence of malignancy. ASSESSMENT: BI-RADS BI-RADS 1 - Negative RECOMMENDATION: Routine annual mammography screening. 1 year F/U This examination should not preclude the clinical evaluation of a suspicious palpable abnormality. This patient's information was entered into a reminder system with a target due date for their next mammogram. Electronically signed by: Jane Houston DO 03/05/2024 06:35 PM EDT RP Dictated By: Jane Houston DO Signed By: <Electronically signed by Jane Houston DO in OV> 03/05/24 1835 DD/ 1235 TD/TT: 02/24/24 1250 Warehouse Shipping Associate: Romulo FONSECA IMG BI PROCEDURES Edited Resul t - Final * Hepatitis C Antibody with Reflex to HCV, RNA, Quantitative, Real-Time PCR (10/10/2022 9:24 AM EDT) Hepatitis C Antibody NON-REACT EVELIN NON-REACT EVELIN [facility] [place] [facility] Index 0.04 <1.00 [facility] [place] [facility] Comment: HCV antibody was non-reactive. There is no laboratory evidence of HCV infection. In most cases, no further action is required. However, if recent HCV exposure is suspected, a test for HCV RNA (test code 54094) is suggested. For additional information please refer to http://education.Q Chip/faq/LYG56m4 (This link is being provided for informational/ educational purposes only.) Blood Venous blood specimen / Unknown 10/10/2022 9:24 AM EDT 10/10/2022 9:25 AM EDT Narrative [facility] - 10/14/2022 1:43 PM EDT FASTING:NO FASTING: NO Romulo ROJAS LAB BLOOD ORDERABLES Final Res ult [facility] [address], [place] [address] [facility] [place] [facility] [address] [place] [address] * (ABNORMAL) Hemoglobin A1c (09/27/2022 7:57 AM EDT) Hemoglobin A1c 5.8(H) <5.7 % of total Hgb [facility] [place] [facility] Comment: For someone without known diabetes, a hemoglobin A1c value between 5.7% and 6.4% is consistent with prediabetes and should be confirmed with a follow-up test. For someone with known diabetes, a value <7% indicates that their diabetes is well controlled. A1c targets should be individualized based on duration of diabetes, age, comorbid conditions, and other considerations. This assay result is consistent with an increased risk of diabetes. Currently, no consensus exists regarding use of hemoglobin A1c for diagnosis of diabetes for children. Blood Venous blood specimen / Unknown 09/27/2022 7:57 AM EDT 09/27/2022 7:58 AM EDT Narrative [facility] - 09/27/2022 10:52 PM EDT FASTING:YES FASTING: YES Romulo FONSECA LAB BLOOD ORDERABLES Final Res ult [facility] [address], [place] [address] [facility] [address] [place] [address] from Last 3 Months or Most Recently Relevant to Health [place] [id number] [facility] [employer] (O D-SNP) RENA AREVALO [id number] * Guarantor: Hilary Carolina Account Type Relation to Patient Date of Phone Billing Address [place] [phone] * Guarantor: Hilary Carolina Account Type Relation to Patient Date of Phone Billing Address [place] [phone] * Guarantor: Hilary Carolina Account Type Relation to Patient Date of Phone Billing Address Personal/[place] [phone] Care Teams Head Of It Relationship Specialty Start Date End Date Sadie Alonso NP [address] [place] [id number] PCP - General Family Medicine 06/21/23
== END 2025-03-01 12:06 | disposition home or self-care (01) ==
LOC: HO.MAMMO 12:05
PROVIDERS: PCP Nurse Practitioner Family; Visit Provider Nurse Practitioner Family
DX: Z12.31 Encounter for screening mammogram for malignant neoplasm of breast (principal)
CPT/HCPCS: 77063; 77067

== ENCOUNTER → 2025-03-01 12:30 | Outpatient (BNV) | payer OTHER, SELFPAY | PROVIDERS: PCP Nurse Practitioner Family; Visit Provider Internal Medicine | DX: Z12.31 Encounter for screening mammogram for malignant neoplasm of breast (principal) | CPT/HCPCS: 77063; 77067 ==